=== PATIENT | male | born 1960 | race African-American/Black ===

== ENCOUNTER 2020-11-08 13:04 | Emergency (ER) | payer OTHER ==
[~2020-11-08] VITALS: Ht 167.6 cm; Wt 90.7 kg
[2020-11-08 13:38] LABS: ABSOLUTE NEUTROPHILS 2.9 thou/uL (1.4-8.2); BASOPHILS 0.8 % (0.0-2.0); EOSINOPHILS 6.6 % (0.0-3.0); HEMATOCRIT 44.3 % (42.0-52.0); LYMPHOCYTES 27.9 % (24.0-44.0); MCH 29.6 pg (26.0-34.0); MCHC 33.8 g/dL (28.0-37.0); MCV 87.7 fL (80.0-100.0); MONOCYTES 7.3 % (1.0-8.0); PLATELET COUNT 275 thou/uL (150-400); POLYS 57.4 % (36.0-66.0); RBC 5.05 mil/uL (4.50-6.00); RDW 14.3 % (10.5-14.5); WBC 5.1 thou/uL (4.0-11.0)
[2020-11-08 13:51] LABS: ANION GAP 8 mmol/L (7-16); BUN 25 mg/dL (7-18); CALCIUM 8.7 mg/dL (8.5-10.1); CHLORIDE 106 mmol/L (98-107); CO2 27 mmol/L (21-32); CREATININE 1.2 mg/dL (0.7-1.3); GLUCOSE 99 mg/dL (74-106); SODIUM 141 mmol/L (136-145)
[2020-11-08 14:00] LABS: TROPONIN-I <0.06 ng/mL (<0.06)
--- NOTE | 2020-11-08 15:05 | EKG ---
[address] [address] ELECTROCARDIOGRAM REPORT Name: MELISSAMARCIA Bass Room #: [facility].R.#: [id number] Admission: Attend Phys: Discharge: Date of : 56 Report #: [id number] [facility] Test Date: 2020-11-08 Test Time: 13:09:48 Pat Name: MARCIA TORRES Department: Room: Gender: Surgical Orderly: STEF : 1960 Requested By: Tyree Rocha Order Number: [id number] MD: Darrel Thakkar Measurements Intervals [place] Rate: 87 P: 38 NM: 154 QRS: 11 QRSD: 91 T: -2 QT: 349 QTc: 420 Interpretive Statements Sinus rhythm Probable left atrial enlargement Borderline T abnormalities, inferior leads No previous ECG available for comparison Electronically Signed On 11-08-2020 15:05:03 CDT by Darrel Thakkar [email or web address] <ELECTRONICALLY SIGNED> By: Darrel Thakkar MD, [facility] 11/08/20 1505 1309 1309 Darrel Thakkar MD, FACC /EPI
[2020-11-08 16:02] VITALS: BP 136/88
[2020-11-08] MEDS ORDERED: PREDNISONE 20 M20 MG PO (17:16)
== END 2020-11-08 17:17 | disposition home or self-care (01) ==
LOC: ER 13:04
PROVIDERS: Emergency Medicine; Nurse Practitioner
DX: J45.901 Unspecified asthma with (acute) exacerbation (principal); Z20.822 Contact with and (suspected) exposure to COVID-19; R07.89 Other chest pain; I10 Essential (primary) hypertension